=== PATIENT | male | born 1960 | race Caucasian/White ===

== ENCOUNTER 2025-09-01 10:04 | Outpatient (CLI) | payer BC | END 2025-09-01 10:05 | disposition home or self-care (01) | LOC: CSHULT 10:04 | PROVIDERS: ATTEND Internal Medicine Rheumatology | DX: R74.8 Abnormal levels of other serum enzymes (principal); R16.0 Hepatomegaly, not elsewhere classified | CPT/HCPCS: 76705; 93976 ==